=== PATIENT | male | born 1955 | race Caucasian/White ===

== ENCOUNTER 2017-05-03 13:00 | Inpatient (IN) | payer MEDICAID ==
[~2017-05-03] VITALS: Ht 172.7 cm; Wt 124.6 kg
[~2017-05-03 13:00] MED LIST: ALDACTAZIDE 25/1 TAB PO; ASPIR 8181 M1 PO; ASPIRIN325 MG PO; BISOPROLOL-HCT1 EAC1 PO; CINNAMON500 MG PO; CLONAZEPAM2 MG; CYMBALTA60 M1 PO; CYMBALTA60 MG; DAILY MULTIVIT1 EAC5 PO; DARVOCET-N 1001 TAB PO; DULCOLAX STOOL100 MG; ESTER C 500 MG PO; FISH OIL OMEGA 3 PO; FLOMAX0.4 MG PO; GLUCOSAMINE 1,51 CAP; KLONOPIN1 M1 PO; LAMOTRIGINE100 MG PO; LEXAPRO10 MG; NORCO 10/3251 TAB PO; NUVIGIL150 MG PO; NUVIGIL50 MG PO; OXYBUTYNIN CHLOR5 M2 PO; PERCOCET 10-321 EACH PO; POTASSIUM99 MG PO; PRAMOSONE; PROCHLORPERAZIN10 MG PO; PROPOXY-N-APAP1 TAB; SANCTURA XR60 MG PO; SPIRONOLACT/HCT1 TAB; ST. JOSEPH ASP325 MG PO; TRAZODONE100 MG PO; VITAMIN C1000 M1 PO; [UNRECOGNIZED DRUG - OTHER] PO
[2017-05-11] MEDS ORDERED: LASIX40 M1 PO (12:55)
[2017-05-11] MEDS ORDERED: BISACODYL5 M1 PO (12:57)
[2017-05-11] MEDS ORDERED: OMEPRAZOLE20 M4 PO (12:58)
[2017-05-11] MEDS ORDERED: VITAMIN D31000 UNI3 PO (13:03)
[2017-05-11] MEDS ORDERED: DEPO-TESTO200 MG/1 M IM (13:05)
[2017-05-16 11:38] LABS: PROTHROMBIN TIME 12.1 SECONDS (9.0-13.6)
[2017-05-17 05:35] LABS: BASO % 0.1 % (0-2); IMMATURE GRANULOCYTES ABSOLUTE 0.05 tho/cmm (0-0.03); IMMATURE GRANULOCYTES PERCENT 0.3 % (0-0.3); LYMPH ABSOLUTE COUNT 1.5 tho/cmm (0.8-4.5); MCH (MEAN CORPUSCULAR HGB) 29.4 pg (28.0-32.0); MCHC MEAN CORPUSCULAR HGB CONC 32.4 % (32.0-36.0); MCV (MEAN CELL VOLUME) 90.7 fl (82.0-96.0); MEAN PLATELET VOLUME 8.7 cmc (9.4-12.4); MONO % 9.7 % (0-12); MONOCYTE ABSOLUTE COUNT 1.7 tho/cmm (0.0-1.2); NEUTROPHIL ABSOLUTE COUNT 13.7 tho/cmm (1.6-8.0); NEUTROPHIL-AUTOMATED 13.7 tho/cmm (1.6-8.0); NEUTROPHILS % 80.9 % (40-80); PLATELET COUNT 206 tho/cmm (150-450); RED BLOOD COUNT 4.08 mil/cmm (4.40-5.70); RED CELL DISTRIBUTION WIDTH 15.3 % (12.4-16.4); WHITE BLOOD COUNT 16.9 tho/cmm (4.0-10.0)
[2017-05-18] MEDS ORDERED: ULTRAM50 M1 PO (09:03)
[2017-05-18] MEDS ORDERED: TYLENOL325 M2 PO (09:04)
[2017-05-18] MEDS ORDERED: OXYCODONE HCL5 M1 PO (09:05)
[2017-05-18] MEDS ORDERED: ASPIRIN81 M1 PO (09:23)
== END 2017-05-18 14:20 | DRG 470 ==
LOC: SHSB 05-16 10:23 → CARE 05-16 11:00 → PACU 05-16 15:44 → 5EA 05-16 17:45
PROVIDERS: ADMIT Orthopaedic Surgery
PROC: 0SRB049 Replacement of Left Hip Joint with Ceramic on Polyethylene Synthetic Substitute, Cemented, Open Approach (ICD-10-PCS; principal; 2017-05-16)
DX: M16.12 Unilateral primary osteoarthritis, left hip (principal); M41.9 Scoliosis, unspecified; I10 Essential (primary) hypertension; K21.9 Gastro-esophageal reflux disease without esophagitis; F32.9 Major depressive disorder, single episode, unspecified; G47.33 Obstructive sleep apnea (adult) (pediatric); F41.9 Anxiety disorder, unspecified; E87.6 Hypokalemia; G47.10 Hypersomnia, unspecified
CPT/HCPCS: C1776; J0171; J1885; J2795; J3010